=== PATIENT | female | born 1985 | race Caucasian/White ===

== ENCOUNTER 2023-12-18 17:49 | Emergency (ER) | payer BC ==
[2023-12-18] MEDS: Ketorolac 60 MG/2 ML SDV IM ONE (19:46)
[2023-12-18] MEDS: cefTRIAXone 1 GM, Lidocaine 1% 2.1 ML IM ONE (19:47)
== END 2023-12-18 20:20 | disposition home or self-care (01) ==
LOC: JD.ED 17:49
DX: H66.91 Otitis media, unspecified, right ear (principal)
CPT/HCPCS: 96372; 99282; 99283; J0696; J1885; J3490